=== PATIENT | male | born 1945 | race Hispanic/Latino ===

== ENCOUNTER 2020-11-23 02:38 | Inpatient (IN) | payer MEDICARE ==
[2020-11-24] MEDS: FAMOTIDINE 20 MG TAB PO SCH ×3 (02:58→21:23)
[2020-11-24] MEDS: DONEPEZIL 10 MG TAB PO SCH ×2 (02:59→21:23)
[2020-11-24] MEDS: traZODone 100 MG TAB PO SCH ×2 (03:02→21:23)
[2020-11-24 07:15] LABS: Basophils % (Auto) 0.6 % (0.0-1.8); Eosinophils # (Auto) 0.3 K/mm3 (0.0-0.4); Eosinophils % (Auto) 4.5 % (0.0-4.3); Hematocrit 36.1 % (35.5-45.6); Hemoglobin 11.9 gm/dl (11.8-15.2); Lymphocytes # (Auto) 1.7 K/mm3 (1.2-5.4); Lymphocytes % (Auto) 26.7 % (13.4-35.0); Mean Corpuscular HGB Conc 33 % (32-34); Mean Corpuscular Volume 95 fl (84-94); Monocytes # (Auto) 0.8 K/mm3 (0.0-0.8); Monocytes % (Auto) 12.3 % (0.0-7.3); Platelet Count 210 K/mm3 (140-440); Red Blood Count 3.79 M/mm3 (3.65-5.03)
[2020-11-24 07:37] LABS: Albumin 3.5 g/dL (3.9-5); Calcium 8.8 mg/dL (8.4-10.2); Chol/HDL Ratio 2.83 %
--- NOTE | 2020-11-24 08:40 | History and Physical Report ---
GP History & Physical - History of Present Illness Date of admission: 11/24/20 Date of Examination: 11/24/20 Reason for Admission: Danger to self, Danger to others, Impaired reality testing History of Present Illness: HPI Patient is a 74-year-old, retired male with past medical history of dementia who was admitted from [facility]. According to medical records from the other facility, most of the information was provided from who gonzalez taken patient to the ER from his nursing facility. Attempt made to interview him this AM but patient appears withdrawn and not engaged, not physical agitation. PAST PSYCHIATRIC HISTORY: Diagnoses: none reported Suicide attempts or Self-harm behavior: none reported Prior psychiatric hospitalizations: none reported Substance Abuse history: none reported Previous psychiatric medications tried: none reported Outpatient treatment: none reported PAST MEDICAL HISTORY: Family Psychiatric History: None reported or documented SOCIAL HISTORY Marital Status: Living Arrangements: Assisted living Employment Status: Retired Access to guns/weapons: none reported Education: n/a History of Abuse: none reported Legal History: none reported REVIEW OF SYSTEMS ROS cannot be reliably obtained from the patient due to her confusion and somnolence. MENTAL STATUS EXAMINATION General Appearance and Behavior: Age appropriate, good hygiene, wearing appropriate clothes, uncooperative polite with questioning. Cooperation: Withdrawn Psychomotor Behavior: Psychomotor normal Mood: N/A Affect and affective range: Flat Thought Process: Tangential Thought Content:confused Speech: Normal volume, Regular rate and rhythm, Intellectual Functioning: Poor Suicidal Ideation: N/A Homicidal Ideation: N/A Impulse Control: Unimpaired Insight and Judgment: Impaired Memory: memory impaired Attention:Distractible, Orientation: Alert, but disoriented and confused Assessment and Plan - Psychiatric problem (1) Dementia with behavioral disturbance Current Visit: Yes Status: Acute F03.91 Treatment Plan Patient admitted for inpatient psychiatric evaluation, medication adjustment and close monitoring The patient's behavior, mood, sleep and appetite will be closely monitored. Patient enrolled in individual and group therapeutic sessions and encouraged to attend. Patient provided with a safe and structured environment. Patient's physical health needs will be addressed by the Hospitalist. Hospitalist Consulted Labs including CBC, CMP, Lipid profile and Hemoglobin A1C levels ordered for baseline reference Social Assessment will be completed and the [facility] will work with patient and family to ensure a suitable and safe disposition Medication adjustment will be made as clinically indicated Usual Wellness Yarsanism/Preservation: - Start Trazodone 50 mg po QHS & 50 mg po QHS PRN between 10 PM & 2 AM for insomnia - Start Melatonin 5 mg po QHS to promote circadian rhythm - Start [place]-3 for brain health, reduce impulsivity, and as adjunctive treatment for mood disorder, continue upon discharge given overall benefits. - Start B1 prophylaxis with 200 mg po for 5 days The patient agreed on the treatment plan, understood the risk, benefit, alternative treatment, potential consequence of no treatment, and gave informed consent. Initial Certification Inpatient psych services: I certify that the inpatient psychiatric services are required for treatment that could reasonably be expected to improve the patient's condition. Estimated days: 7 Post hospital care: primary care provider, psychiatric provider Legal Status: Other Patient Problems: Current Active Problems Dementia with behavioral disturbance (Acute) Reaction to Hospitalization: Accepting Medications and Allergies Allergies Allergy/AdvReac Type Severity Reaction Status Date / Time codeine Allergy Unknown Verified 11/23/20 20:12 Penicillins Allergy Unknown Verified 11/23/20 20:12 Home Medications Medication Instructions Recorded Confirmed Last Taken Type Benzonatate [Tessalon Perles] 100 mg PO Q8HR PRN 11/23/20 11/23/20 Unknown History Famotidine [Pepcid] 20 mg PO BID 11/23/20 11/23/20 Unknown History LORazepam [Lorazepam] 0.5 mg PO TID PRN 11/23/20 11/23/20 Unknown History dexAMETHasone [Dexamethasone] 6 mg PO Q24HR 11/23/20 11/23/20 Unknown History donepeziL [Aricept] 10 mg PO QDAY 11/23/20 11/23/20 Unknown History lisinopriL [Zestril TAB] 40 mg PO QDAY 11/23/20 11/23/20 Unknown History traZODone [Desyrel] 100 mg PO HS 11/23/20 11/23/20 Unknown History Active Meds: Active Medications Donepezil HCl (Donepezil 10 Mg Tab) 10 mg PO QHS [facility] Last Admin: 11/24/20 02:59 Dose: 10 mg Documented by: Famotidine (Famotidine 20 Mg Tab) 20 mg PO BID [facility] Last Admin: 11/24/20 02:58 Dose: Not Given Documented by: Lisinopril (Lisinopril 40 Mg Tab) 40 mg PO QDAY [facility] Melatonin (Melatonin 5 Mg Tab) 5 mg PO QHS PRN PRN Reason: Sleep Trazodone HCl (Trazodone 100 Mg Tab) 100 mg PO QHS [facility] Last Admin: 11/24/20 03:02 Dose: 100 mg Documented by: Results - Results Labs/Vitals: Laboratory Last Values WBC 6.5 K/mm3 (4.5-11.0) 11/24/20 06:20 RBC 3.79 M/mm3 (3.65-5.03) 11/24/20 06:20 Hgb 11.9 gm/dl (11.8-15.2) 11/24/20 06:20 Hct 36.1 % (35.5-45.6) 11/24/20 06:20 MCV 95 fl (84-94) H 11/24/20 06:20 MCH 31 pg (28-32) 11/24/20 06:20 MCHC 33 % (32-34) 11/24/20 06:20 RDW 15.0 % (13.2-15.2) 11/24/20 06:20 Plt Count 210 K/mm3 (140-440) 11/24/20 06:20 Lymph % (Auto) 26.7 % (13.4-35.0) 11/24/20 06:20 [place] % (Auto) 12.3 % (0.0-7.3) H 11/24/20 06:20 Eos % (Auto) 4.5 % (0.0-4.3) H 11/24/20 06:20 Baso % (Auto) 0.6 % (0.0-1.8) 11/24/20 06:20 Lymph # (Auto) 1.7 K/mm3 (1.2-5.4) 11/24/20 06:20 [place] # (Auto) 0.8 K/mm3 (0.0-0.8) 11/24/20 06:20 Eos # (Auto) 0.3 K/mm3 (0.0-0.4) 11/24/20 06:20 Baso # (Auto) 0.0 K/mm3 (0.0-0.1) 11/24/20 06:20 Seg Neutrophils % 55.9 % (40.0-70.0) 11/24/20 06:20 Seg Neutrophils # 3.6 K/mm3 (1.8-7.7) 11/24/20 06:20 Sodium 139 mmol/L (137-145) 11/24/20 06:20 Potassium 4.9 mmol/L (3.6-5.0) 11/24/20 06:20 Chloride 106.1 mmol/L (98-107) 11/24/20 06:20 Carbon Dioxide 27 mmol/L (22-30) 11/24/20 06:20 Anion Gap 11 mmol/L 11/24/20 06:20 BUN 22 mg/dL (9-20) H 11/24/20 06:20 Creatinine 1.4 mg/dL (0.8-1.3) H 11/24/20 06:20 Estimated GFR 50 ml/min 11/24/20 06:20 BUN/Creatinine Ratio 16 % 11/24/20 06:20 Glucose 84 mg/dL (75-100) 11/24/20 06:20 POC Glucose 78 mg/dL (70-105) 11/24/20 04:54 Hemoglobin A1c 6.1 % (4-6) H 11/24/20 06:20 Calcium 8.8 mg/dL (8.4-10.2) 11/24/20 06:20 Total Bilirubin 0.40 mg/dL (0.1-1.2) 11/24/20 06:20 AST 14 units/L (5-40) 11/24/20 06:20 ALT 9 units/L (7-56) 11/24/20 06:20 Alkaline Phosphatase 67 units/L (35-129) 11/24/20 06:20 Total Protein 6.1 g/dL (6.3-8.2) L 11/24/20 06:20 Albumin 3.5 g/dL (3.9-5) L 11/24/20 06:20 Albumin/Globulin Ratio 1.3 % 11/24/20 06:20 Triglycerides 87 mg/dL (2-149) 11/24/20 06:20 Cholesterol 139 mg/dL (50-199) 11/24/20 06:20 LDL Cholesterol Direct 89 mg/dL (50-130) 11/24/20 06:20 HDL Cholesterol 49 mg/dL (40-59) 11/24/20 06:20 Cholesterol/HDL Ratio 2.83 % 11/24/20 06:20 TSH 2.860 mlU/mL (0.270-4.200) 11/24/20 06:20 Last Vital Signs Temp 98.7 F 11/24/20 07:51 Pulse 90 11/24/20 07:51 Resp 18 11/24/20 07:51 BP 135/67 11/24/20 07:51 Pulse Ox 96 11/24/20 07:51 Physical Examination - Constitutional Vitals: Vital Signs Temp Pulse Resp BP Pulse Ox 98.7 F 90 18 135/67 96 11/24/20 07:51 11/24/20 07:51 11/24/20 07:51 11/24/20 07:51 11/24/20 07:51 Temperature -Last 24 Hours Temperature 98.7 F Temperature 97.4 F Mental Status Exam - Vital signs Last Vital Signs Temp 98.7 F 11/24/20 07:51 Pulse 90 11/24/20 07:51 Resp 18 11/24/20 07:51 BP 135/67 11/24/20 07:51 Pulse Ox 96 11/24/20 07:51 Assessment and Plan - Psychiatric problem (1) Dementia with behavioral disturbance Current Visit: Yes Status: Acute Physician Certification - Certification Statement Physician Certification Statement: This is an acknowledgement statement that JENNIFER EDWARD is a 74 year old M who requires inpatient psychiatric admission for treatment which could reasonably be expected to improve the patient's condition for Estimated period of time patient will need to remain in the hospital: [ ] Plan for post-hospital care: [ ]
[2020-11-24] MEDS: LISINOPRIL 40 MG TAB PO SCH (10:43)
[2020-11-24] MEDS: risperiDONE 1 MG TAB PO SCH ×2 (10:43→21:23)
--- NOTE | 2020-11-24 11:58 | History and Physical Report ---
History of Present Illness Date of examination: 11/24/20 Date of admission: 11/24/20 Chief complaint: 11/24/2020 Dementia with behavioral disturbances History of present illness: 74-year-old male with past medical history of hypertension and dementia who presented from [facility] due to behavioral disturbances secondary to dementia. No family at the bedside, patient [facility]. Patient was transferred to [facility] for continued care. Cannot obtain any information from the patient since he is confused. Does not admit to any suicidal ideation or homicidal ideation. Psychiatry has seen the patient, on appropriate medications at this time. Hospitalist consulted for medical management of hypertension. Past History Past Medical History: hypertension Past Surgical History: Other (Cannot obtain surgical history due to patient's mental condition) Social history: other (Cannot obtain social history due to patient's mental condition) Family history: other (Cannot obtain due to patient's mental condition) Medications and Allergies Allergies Allergy/AdvReac Type Severity Reaction Status Date / Time codeine Allergy Unknown Verified 11/23/20 20:12 Penicillins Allergy Unknown Verified 11/23/20 20:12 Home Medications Medication Instructions Recorded Confirmed Last Taken Type Benzonatate [Tessalon Perles] 100 mg PO Q8HR PRN 11/23/20 11/23/20 Unknown History Famotidine [Pepcid] 20 mg PO BID 11/23/20 11/23/20 Unknown History LORazepam [Lorazepam] 0.5 mg PO TID PRN 11/23/20 11/23/20 Unknown History dexAMETHasone [Dexamethasone] 6 mg PO Q24HR 11/23/20 11/23/20 Unknown History donepeziL [Aricept] 10 mg PO QDAY 11/23/20 11/23/20 Unknown History lisinopriL [Zestril TAB] 40 mg PO QDAY 11/23/20 11/23/20 Unknown History traZODone [Desyrel] 100 mg PO HS 11/23/20 11/23/20 Unknown History Active Meds: Active Medications Donepezil HCl (Donepezil 10 Mg Tab) 10 mg PO QHS [facility] Last Admin: 11/24/20 02:59 Dose: 10 mg Documented by: Famotidine (Famotidine 20 Mg Tab) 20 mg PO BID [facility] Last Admin: 11/24/20 10:43 Dose: 20 mg Documented by: Lisinopril (Lisinopril 40 Mg Tab) 40 mg PO QDAY [facility] Last Admin: 11/24/20 10:43 Dose: 40 mg Documented by: Melatonin (Melatonin 5 Mg Tab) 5 mg PO QHS PRN PRN Reason: Sleep Risperidone (Risperidone 1 Mg Tab) 1 mg PO BID [facility] Last Admin: 11/24/20 10:43 Dose: 1 mg Documented by: Trazodone HCl (Trazodone 100 Mg Tab) 100 mg PO QHS [facility] Last Admin: 11/24/20 03:02 Dose: 100 mg Documented by: Review of Systems ROS unobtainable: due to mental status Exam - Constitutional Vitals: Temp Pulse Resp BP Pulse Ox 98.7 F 90 18 135/67 96 11/24/20 07:51 11/24/20 10:43 11/24/20 07:51 11/24/20 10:43 11/24/20 07:51 General appearance: Present: no acute distress, well-nourished - EENT Eyes: Present: PERRL ENT: hearing intact, clear oral mucosa - Neck Neck: Present: supple, normal ROM - Respiratory Respiratory effort: normal Respiratory: bilateral: CTA - Cardiovascular Heart Sounds: Present: S1 & S2. Absent: rub, click - Extremities Extremities: no ischemia, No edema, normal color, Full ROM - Abdominal General gastrointestinal: Present: soft, non-tender, non-distended, normal bowel sounds - Integumentary Integumentary: Present: clear, warm, dry - Musculoskeletal Musculoskeletal: gait normal, strength equal bilaterally - Psychiatric Psychiatric: cooperative, other (No agitation, no behavioral disturbances at this time. Patient minimally verbal) - Neurologic Neurologic: CNII-XII intact, moves all extremities Results - Labs CBC & Chem 7: 11/24/20 06:20 11/24/20 06:20 Labs: Laboratory Last Values WBC 6.5 K/mm3 (4.5-11.0) 11/24/20 06:20 RBC 3.79 M/mm3 (3.65-5.03) 11/24/20 06:20 Hgb 11.9 gm/dl (11.8-15.2) 11/24/20 06:20 Hct 36.1 % (35.5-45.6) 11/24/20 06:20 MCV 95 fl (84-94) H 11/24/20 06:20 MCH 31 pg (28-32) 11/24/20 06:20 MCHC 33 % (32-34) 11/24/20 06:20 RDW 15.0 % (13.2-15.2) 11/24/20 06:20 Plt Count 210 K/mm3 (140-440) 11/24/20 06:20 Lymph % (Auto) 26.7 % (13.4-35.0) 11/24/20 06:20 [place] % (Auto) 12.3 % (0.0-7.3) H 11/24/20 06:20 Eos % (Auto) 4.5 % (0.0-4.3) H 11/24/20 06:20 Baso % (Auto) 0.6 % (0.0-1.8) 11/24/20 06:20 Lymph # (Auto) 1.7 K/mm3 (1.2-5.4) 11/24/20 06:20 [place] # (Auto) 0.8 K/mm3 (0.0-0.8) 11/24/20 06:20 Eos # (Auto) 0.3 K/mm3 (0.0-0.4) 11/24/20 06:20 Baso # (Auto) 0.0 K/mm3 (0.0-0.1) 11/24/20 06:20 Seg Neutrophils % 55.9 % (40.0-70.0) 11/24/20 06:20 Seg Neutrophils # 3.6 K/mm3 (1.8-7.7) 11/24/20 06:20 Sodium 139 mmol/L (137-145) 11/24/20 06:20 Potassium 4.9 mmol/L (3.6-5.0) 11/24/20 06:20 Chloride 106.1 mmol/L (98-107) 11/24/20 06:20 Carbon Dioxide 27 mmol/L (22-30) 11/24/20 06:20 Anion Gap 11 mmol/L 11/24/20 06:20 BUN 22 mg/dL (9-20) H 11/24/20 06:20 Creatinine 1.4 mg/dL (0.8-1.3) H 11/24/20 06:20 Estimated GFR 50 ml/min 11/24/20 06:20 BUN/Creatinine Ratio 16 % 11/24/20 06:20 Glucose 84 mg/dL (75-100) 11/24/20 06:20 POC Glucose 78 mg/dL (70-105) 11/24/20 04:54 Hemoglobin A1c 6.1 % (4-6) H 11/24/20 06:20 Calcium 8.8 mg/dL (8.4-10.2) 11/24/20 06:20 Total Bilirubin 0.40 mg/dL (0.1-1.2) 11/24/20 06:20 AST 14 units/L (5-40) 11/24/20 06:20 ALT 9 units/L (7-56) 11/24/20 06:20 Alkaline Phosphatase 67 units/L (35-129) 11/24/20 06:20 Total Protein 6.1 g/dL (6.3-8.2) L 11/24/20 06:20 Albumin 3.5 g/dL (3.9-5) L 11/24/20 06:20 Albumin/Globulin Ratio 1.3 % 11/24/20 06:20 Triglycerides 87 mg/dL (2-149) 11/24/20 06:20 Cholesterol 139 mg/dL (50-199) 11/24/20 06:20 LDL Cholesterol Direct 89 mg/dL (50-130) 11/24/20 06:20 HDL Cholesterol 49 mg/dL (40-59) 11/24/20 06:20 Cholesterol/HDL Ratio 2.83 % 11/24/20 06:20 TSH 2.860 mlU/mL (0.270-4.200) 11/24/20 06:20 Sanchez/IV: Voiding Method Toilet Assessment and Plan Assessment and plan: 74-year-old male with a past medical history of hypertension and dementia who [facility] for dementia with behavioral disturbances Advance Directives: Yes VTE prophylaxis?: Not ordered (Patient is ambulatory and walking around the unit) - Patient Problems (1) Hypertension Current Visit: Yes Status: Chronic Qualifiers: Hypertension type: essential hypertension Qualified Code(s): I10 - Essential (primary) hypertension Plan to address problem: Continue lisinopril. Continue to monitor creatinine. We will switch to amlo dipine if creatinine continues to be elevated. (2) Dementia with behavioral disturbance Current Visit: Yes Status: Acute Plan to address problem: Psych following, continue donezepil, risperidone, and trazodone. Psychiatry to make recommendations and adjustments to psych meds.
--- NOTE | 2020-11-25 07:29 | Progress Note ---
Subjective Date of service: 11/25/20 Principal diagnosis: Dementia with behavioral disturbance Subjective Comment: Per Psych Nuurse: Patient rested quietly until 0345. He awoke and had to be changed due to incontinence. Patient needed 2 staff to assist due to his agitation when being changed. He was unable to return to sleep. He presents as sleeping 6 hours. Will continue to monitor patient for safety. pt spent the evening wandering the unit, alert and oriented to self, calm and cooperative, presently confused, medication compliant, good appetite, no behavioral issue, no distress noted, will continue to monitor for safety. Psych Progress Patient seen this a.m., when asked how patient was doing and if he slept good, patient states that "he does not know" patient then also asked what do I want from him and he proceeded to the creatinine his breakfast to eat. Reason for continuing acute inpatient hospitalization: We will continue to observe for behavioral disturbances REVIEW OF SYSTEMS ROS cannot be reliably obtained from the patient due to her confusion and somnolence. MENTAL STATUS EXAMINATION General Appearance and Behavior: Age appropriate, good hygiene, wearing appropriate clothes, uncooperative polite with questioning. Cooperation: Withdrawn Psychomotor Behavior: Psychomotor normal Mood: N/A Affect and affective range: Flat Thought Process: Tangential Thought Content:confused Speech: Normal volume, Regular rate and rhythm, Intellectual Functioning: Poor Suicidal Ideation: N/A Homicidal Ideation: N/A Impulse Control: Unimpaired Insight and Judgment: Impaired Memory: memory impaired Attention:Distractible, Orientation: Alert, but disoriented and confused Assessment and Plan - Psychiatric problem (1) Dementia with behavioral disturbance Current Visit: Yes Status: Acute F03.91 Treatment Plan Patient admitted for inpatient psychiatric evaluation, medication adjustment and close monitoring The patient's behavior, mood, sleep and appetite will be closely monitored. Patient enrolled in individual and group therapeutic sessions and encouraged to attend. Patient provided with a safe and structured environment. Patient's physical health needs will be addressed by the Hospitalist. Hospitalist Consulted Labs including CBC, CMP, Lipid profile and Hemoglobin A1C levels ordered for baseline reference Social Assessment will be completed and the Leave Coordinator will work with patient and family to ensure a suitable and safe disposition Medication adjustment will be made as clinically indicated Usual Wellness Religious/Preservation: - Start Trazodone 50 mg po QHS & 50 mg po QHS PRN between 10 PM & 2 AM for insomnia - Start Melatonin 5 mg po QHS to promote circadian rhythm - Start [place]-3 for brain health, reduce impulsivity, and as adjunctive treatment for mood disorder, continue upon discharge given overall benefits. - Start B1 prophylaxis with 200 mg po for 5 days The patient agreed on the treatment plan, understood the risk, benefit, alternative treatment, potential consequence of no treatment, and gave informed consent. Initial Certification Inpatient psych services: I certify that the inpatient psychiatric services are required for treatment that could reasonably be expected to improve the patient's condition. Estimated days:6 Post hospital care: primary care provider, psychiatric provider Assessment and Plan - Patient Problems (1) Dementia with behavioral disturbance Current Visit: Yes Status: Acute Medications and Allergies Allergies Allergy/AdvReac Type Severity Reaction Status Date / Time codeine Allergy Unknown Verified 11/23/20 20:12 Penicillins Allergy Unknown Verified 11/23/20 20:12 Home Medications Medication Instructions Recorded Confirmed Last Taken Type Benzonatate [Tessalon Perles] 100 mg PO Q8HR PRN 11/23/20 11/23/20 Unknown History Famotidine [Pepcid] 20 mg PO BID 11/23/20 11/23/20 Unknown History LORazepam [Lorazepam] 0.5 mg PO TID PRN 11/23/20 11/23/20 Unknown History dexAMETHasone [Dexamethasone] 6 mg PO Q24HR 11/23/20 11/23/20 Unknown History donepeziL [Aricept] 10 mg PO QDAY 11/23/20 11/23/20 Unknown History lisinopriL [Zestril TAB] 40 mg PO QDAY 11/23/20 11/23/20 Unknown History traZODone [Desyrel] 100 mg PO HS 11/23/20 11/23/20 Unknown History Active Meds: Active Medications Donepezil HCl (Donepezil 10 Mg Tab) 10 mg PO QHS [facility] Last Admin: 11/24/20 21:23 Dose: 10 mg Documented by: Famotidine (Famotidine 20 Mg Tab) 20 mg PO BID [facility] Last Admin: 11/24/20 21:23 Dose: 20 mg Documented by: Lisinopril (Lisinopril 40 Mg Tab) 40 mg PO QDAY [facility] Last Admin: 11/24/20 10:43 Dose: 40 mg Documented by: Melatonin (Melatonin 5 Mg Tab) 5 mg PO QHS PRN PRN Reason: Sleep Risperidone (Risperidone 1 Mg Tab) 1 mg PO BID [facility] Last Admin: 11/24/20 21:23 Dose: 1 mg Documented by: Trazodone HCl (Trazodone 100 Mg Tab) 100 mg PO QHS [facility] Last Admin: 11/24/20 21:23 Dose: 100 mg Documented by: Results - Results Labs/Vitals: Laboratory Last Values WBC 6.5 K/mm3 (4.5-11.0) 11/24/20 06:20 RBC 3.79 M/mm3 (3.65-5.03) 11/24/20 06:20 Hgb 11.9 gm/dl (11.8-15.2) 11/24/20 06:20 Hct 36.1 % (35.5-45.6) 11/24/20 06:20 MCV 95 fl (84-94) H 11/24/20 06:20 MCH 31 pg (28-32) 11/24/20 06:20 MCHC 33 % (32-34) 11/24/20 06:20 RDW 15.0 % (13.2-15.2) 11/24/20 06:20 Plt Count 210 K/mm3 (140-440) 11/24/20 06:20 Lymph % (Auto) 26.7 % (13.4-35.0) 11/24/20 06:20 [place] % (Auto) 12.3 % (0.0-7.3) H 11/24/20 06:20 Eos % (Auto) 4.5 % (0.0-4.3) H 11/24/20 06:20 Baso % (Auto) 0.6 % (0.0-1.8) 11/24/20 06:20 Lymph # (Auto) 1.7 K/mm3 (1.2-5.4) 11/24/20 06:20 [place] # (Auto) 0.8 K/mm3 (0.0-0.8) 11/24/20 06:20 Eos # (Auto) 0.3 K/mm3 (0.0-0.4) 11/24/20 06:20 Baso # (Auto) 0.0 K/mm3 (0.0-0.1) 11/24/20 06:20 Seg Neutrophils % 55.9 % (40.0-70.0) 11/24/20 06:20 Seg Neutrophils # 3.6 K/mm3 (1.8-7.7) 11/24/20 06:20 Sodium 139 mmol/L (137-145) 11/24/20 06:20 Potassium 4.9 mmol/L (3.6-5.0) 11/24/20 06:20 Chloride 106.1 mmol/L (98-107) 11/24/20 06:20 Carbon Dioxide 27 mmol/L (22-30) 11/24/20 06:20 Anion Gap 11 mmol/L 11/24/20 06:20 BUN 22 mg/dL (9-20) H 11/24/20 06:20 Creatinine 1.4 mg/dL (0.8-1.3) H 11/24/20 06:20 Estimated GFR 50 ml/min 11/24/20 06:20 BUN/Creatinine Ratio 16 % 11/24/20 06:20 Glucose 84 mg/dL (75-100) 11/24/20 06:20 POC Glucose 78 mg/dL (70-105) 11/24/20 04:54 Hemoglobin A1c 6.1 % (4-6) H 11/24/20 06:20 Calcium 8.8 mg/dL (8.4-10.2) 11/24/20 06:20 Total Bilirubin 0.40 mg/dL (0.1-1.2) 11/24/20 06:20 AST 14 units/L (5-40) 11/24/20 06:20 ALT 9 units/L (7-56) 11/24/20 06:20 Alkaline Phosphatase 67 units/L (35-129) 11/24/20 06:20 Total Protein 6.1 g/dL (6.3-8.2) L 11/24/20 06:20 Albumin 3.5 g/dL (3.9-5) L 11/24/20 06:20 Albumin/Globulin Ratio 1.3 % 11/24/20 06:20 Triglycerides 87 mg/dL (2-149) 11/24/20 06:20 Cholesterol 139 mg/dL (50-199) 11/24/20 06:20 LDL Cholesterol Direct 89 mg/dL (50-130) 11/24/20 06:20 HDL Cholesterol 49 mg/dL (40-59) 11/24/20 06:20 Cholesterol/HDL Ratio 2.83 % 11/24/20 06:20 TSH 2.860 mlU/mL (0.270-4.200) 11/24/20 06:20 Last Vital Signs Temp 99.2 F 11/24/20 22:00 Pulse 72 11/24/20 22:00 Resp 18 11/24/20 22:00 BP 135/57 11/24/20 22:00 Pulse Ox 96 11/24/20 22:00
[2020-11-25] MEDS: FAMOTIDINE 20 MG TAB PO SCH ×2 (09:07→21:29)
[2020-11-25] MEDS: risperiDONE 1 MG TAB PO SCH ×2 (09:08→21:29)
[2020-11-25] MEDS: LISINOPRIL 40 MG TAB PO SCH (09:08)
[2020-11-25] MEDS: traZODone 100 MG TAB PO SCH (21:29)
[2020-11-25] MEDS: DONEPEZIL 10 MG TAB PO SCH (21:29)
--- NOTE | 2020-11-26 08:01 | Progress Note ---
Subjective Date of service: 11/26/20 Principal diagnosis: Dementia with behavioral disturbance Subjective Comment: Attempted to interview the patient today, he is confused and unable to give any insight into his history and as to what is going on with him presently. He just stares with this blank look. Reason for continued inpatient treatment: The patient displays physical aggression at times as observed by nursing staff. REVIEW OF SYSTEMS ROS cannot be reliably obtained from the patient due to her confusion and somnolence. MENTAL STATUS EXAMINATION General Appearance and Behavior: Age appropriate, good hygiene, wearing appropriate clothes, calm Cooperation: Withdrawn Psychomotor Behavior: Psychomotor normal Mood: N/A Affect and affective range: Flat Thought Process: Tangential Thought Content:confused Speech: Normal volume, Regular rate and rhythm, Intellectual Functioning: Poor Suicidal Ideation: N/A Homicidal Ideation: N/A Impulse Control: Unimpaired Insight and Judgment: Impaired Memory: memory impaired Attention:Distractible, Orientation: Alert, but disoriented and confused Assessment and Plan (1) Dementia with behavioral disturbance Current Visit: Yes Status: Acute F03.91 Treatment Plan Patient admitted for inpatient psychiatric evaluation, medication adjustment and close monitoring The patient's behavior, mood, sleep and appetite will be closely monitored. Patient enrolled in individual and group therapeutic sessions and encouraged to attend. Patient provided with a safe and structured environment. Patient's physical health needs will be addressed by the Hospitalist. Hospitalist Consulted Labs including CBC, CMP, Lipid profile and Hemoglobin A1C levels ordered for baseline reference Social Assessment will be completed and the Chief Crew Scheduler will work with patient and family to ensure a suitable and safe disposition Medication adjustment will be made as clinically indicated Adjustments made yesterday. No changes today. Usual Wellness Yazdanism/Preservation: - Start Trazodone 50 mg po QHS & 50 mg po QHS PRN between 10 PM & 2 AM for insomnia - Start Melatonin 5 mg po QHS to promote circadian rhythm - Start [place]-3 for brain health, reduce impulsivity, and as adjunctive treatment for mood disorder, continue upon discharge given overall benefits. - Start B1 prophylaxis with 200 mg po for 5 days The patient agreed on the treatment plan, understood the risk, benefit, alternative treatment, potential consequence of no treatment, and gave informed consent. Estimated days: 5 Post hospital care: primary care provider, psychiatric provider Medications and Allergies Allergies Allergy/AdvReac Type Severity Reaction Status Date / Time codeine Allergy Unknown Verified 11/23/20 20:12 Penicillins Allergy Unknown Verified 11/23/20 20:12 Home Medications Medication Instructions Recorded Confirmed Last Taken Type Benzonatate [Tessalon Perles] 100 mg PO Q8HR PRN 11/23/20 11/23/20 Unknown History Famotidine [Pepcid] 20 mg PO BID 11/23/20 11/23/20 Unknown History LORazepam [Lorazepam] 0.5 mg PO TID PRN 11/23/20 11/23/20 Unknown History dexAMETHasone [Dexamethasone] 6 mg PO Q24HR 11/23/20 11/23/20 Unknown History donepeziL [Aricept] 10 mg PO QDAY 11/23/20 11/23/20 Unknown History lisinopriL [Zestril TAB] 40 mg PO QDAY 11/23/20 11/23/20 Unknown History traZODone [Desyrel] 100 mg PO HS 11/23/20 11/23/20 Unknown History Active Meds: Active Medications Donepezil HCl (Donepezil 10 Mg Tab) 10 mg PO QHS [facility] Last Admin: 11/25/20 21:29 Dose: 10 mg Documented by: Famotidine (Famotidine 20 Mg Tab) 20 mg PO BID [facility] Last Admin: 11/25/20 21:29 Dose: 20 mg Documented by: Lisinopril (Lisinopril 40 Mg Tab) 40 mg PO QDAY [facility] Last Admin: 11/25/20 09:08 Dose: 40 mg Documented by: Melatonin (Melatonin 5 Mg Tab) 5 mg PO QHS PRN PRN Reason: Sleep Risperidone (Risperidone 1 Mg Tab) 1 mg PO BID [facility] Last Admin: 11/25/20 21:29 Dose: 1 mg Documented by: Trazodone HCl (Trazodone 100 Mg Tab) 100 mg PO QHS [facility] Last Admin: 11/25/20 21:29 Dose: 100 mg Documented by: Results - Results Labs/Vitals: Laboratory Last Values WBC 6.5 K/mm3 (4.5-11.0) 11/24/20 06:20 RBC 3.79 M/mm3 (3.65-5.03) 11/24/20 06:20 Hgb 11.9 gm/dl (11.8-15.2) 11/24/20 06:20 Hct 36.1 % (35.5-45.6) 11/24/20 06:20 MCV 95 fl (84-94) H 11/24/20 06:20 MCH 31 pg (28-32) 11/24/20 06:20 MCHC 33 % (32-34) 11/24/20 06:20 RDW 15.0 % (13.2-15.2) 11/24/20 06:20 Plt Count 210 K/mm3 (140-440) 11/24/20 06:20 Lymph % (Auto) 26.7 % (13.4-35.0) 11/24/20 06:20 [place] % (Auto) 12.3 % (0.0-7.3) H 11/24/20 06:20 Eos % (Auto) 4.5 % (0.0-4.3) H 11/24/20 06:20 Baso % (Auto) 0.6 % (0.0-1.8) 11/24/20 06:20 Lymph # (Auto) 1.7 K/mm3 (1.2-5.4) 11/24/20 06:20 [place] # (Auto) 0.8 K/mm3 (0.0-0.8) 11/24/20 06:20 Eos # (Auto) 0.3 K/mm3 (0.0-0.4) 11/24/20 06:20 Baso # (Auto) 0.0 K/mm3 (0.0-0.1) 11/24/20 06:20 Seg Neutrophils % 55.9 % (40.0-70.0) 11/24/20 06:20 Seg Neutrophils # 3.6 K/mm3 (1.8-7.7) 11/24/20 06:20 Sodium 139 mmol/L (137-145) 11/24/20 06:20 Potassium 4.9 mmol/L (3.6-5.0) 11/24/20 06:20 Chloride 106.1 mmol/L (98-107) 11/24/20 06:20 Carbon Dioxide 27 mmol/L (22-30) 11/24/20 06:20 Anion Gap 11 mmol/L 11/24/20 06:20 BUN 22 mg/dL (9-20) H 11/24/20 06:20 Creatinine 1.4 mg/dL (0.8-1.3) H 11/24/20 06:20 Estimated GFR 50 ml/min 11/24/20 06:20 BUN/Creatinine Ratio 16 % 11/24/20 06:20 Glucose 84 mg/dL (75-100) 11/24/20 06:20 POC Glucose 78 mg/dL (70-105) 11/24/20 04:54 Hemoglobin A1c 6.1 % (4-6) H 11/24/20 06:20 Calcium 8.8 mg/dL (8.4-10.2) 11/24/20 06:20 Total Bilirubin 0.40 mg/dL (0.1-1.2) 11/24/20 06:20 AST 14 units/L (5-40) 11/24/20 06:20 ALT 9 units/L (7-56) 11/24/20 06:20 Alkaline Phosphatase 67 units/L (35-129) 11/24/20 06:20 Total Protein 6.1 g/dL (6.3-8.2) L 11/24/20 06:20 Albumin 3.5 g/dL (3.9-5) L 11/24/20 06:20 Albumin/Globulin Ratio 1.3 % 11/24/20 06:20 Triglycerides 87 mg/dL (2-149) 11/24/20 06:20 Cholesterol 139 mg/dL (50-199) 11/24/20 06:20 LDL Cholesterol Direct 89 mg/dL (50-130) 11/24/20 06:20 HDL Cholesterol 49 mg/dL (40-59) 11/24/20 06:20 Cholesterol/HDL Ratio 2.83 % 11/24/20 06:20 TSH 2.860 mlU/mL (0.270-4.200) 11/24/20 06:20 Last Vital Signs Temp 98.4 F 11/25/20 20:00 Pulse 86 11/25/20 20:00 Resp 16 11/25/20 20:00 BP 133/62 11/25/20 20:00 Pulse Ox 98 11/25/20 20:00
[2020-11-26] MEDS: LISINOPRIL 40 MG TAB PO SCH (09:33)
[2020-11-26] MEDS: clonazePAM 0.5 MG TAB PO SCH ×2 (09:33→21:36)
[2020-11-26] MEDS: risperiDONE 1 MG TAB PO SCH ×2 (09:33→21:36)
[2020-11-26] MEDS: FAMOTIDINE 20 MG TAB PO SCH ×2 (09:33→21:36)
[2020-11-26] MEDS: traZODone 100 MG TAB PO SCH (21:36)
[2020-11-26] MEDS: DONEPEZIL 10 MG TAB PO SCH (21:36)
[2020-11-26] MEDS: MELATONIN 5 MG TAB PO PRN (21:36)
--- NOTE | 2020-11-27 09:04 | Progress Note ---
Subjective Date of service: 11/27/20 Principal diagnosis: Dementia with behavioral disturbance Subjective Comment: Per nurse note: Patient spent the unit walking around the unit. He is pleasantly confused. He responds well to redirection. He brightens and smiles on approach. He has had no agitation. Attempted to interview the patient today. He is confused and did not speak to me today. He did smile when I was speaking to him. Reason for continued inpatient treatment: The patient paces a lot, and physical aggression at times as observed by nursing staff. REVIEW OF SYSTEMS ROS cannot be reliably obtained from the patient due to her confusion and somnolence. MENTAL STATUS EXAMINATION General Appearance and Behavior: Age appropriate, good hygiene, wearing appropriate clothes, calm Cooperation: Withdrawn Psychomotor Behavior: Psychomotor normal Mood: N/A Affect and affective range: Flat Thought Process: Tangential Thought Content:confused Speech: Normal volume, Regular rate and rhythm, Intellectual Functioning: Poor Suicidal Ideation: N/A Homicidal Ideation: N/A Impulse Control: Unimpaired Insight and Judgment: Impaired Memory: memory impaired Attention:Distractible, Orientation: Alert, but disoriented and confused Assessment and Plan (1) Dementia with behavioral disturbance Current Visit: Yes Status: Acute F03.91 Treatment Plan Patient admitted for inpatient psychiatric evaluation, medication adjustment and close monitoring The patient's behavior, mood, sleep and appetite will be closely monitored. Patient enrolled in individual and group therapeutic sessions and encouraged to attend. Patient provided with a safe and structured environment. Patient's physical health needs will be addressed by the Hospitalist. Hospitalist Consulted Labs including CBC, CMP, Lipid profile and Hemoglobin A1C levels ordered for baseline reference Social Assessment will be completed and the Addictions Counselor will work with patient and family to ensure a suitable and safe disposition Medication adjustment will be made as clinically indicated Clonazepam 0.25mg po BID x 3 days Usual Wellness Anabaptism/Preservation: - Start Trazodone 50 mg po QHS & 50 mg po QHS PRN between 10 PM & 2 AM for insomnia - Start Melatonin 5 mg po QHS to promote circadian rhythm - Start [place]-3 for brain health, reduce impulsivity, and as adjunctive treatment for mood disorder, continue upon discharge given overall benefits. - Start B1 prophylaxis with 200 mg po for 5 days The patient agreed on the treatment plan, understood the risk, benefit, alternative treatment, potential consequence of no treatment, and gave informed consent. Estimated days: 5 Post hospital care: primary care provider, psychiatric provider Medications and Allergies Allergies Allergy/AdvReac Type Severity Reaction Status Date / Time codeine Allergy Unknown Verified 11/23/20 20:12 Penicillins Allergy Unknown Verified 11/23/20 20:12 Home Medications Medication Instructions Recorded Confirmed Last Taken Type Benzonatate [Tessalon Perles] 100 mg PO Q8HR PRN 11/23/20 11/23/20 Unknown History Famotidine [Pepcid] 20 mg PO BID 11/23/20 11/23/20 Unknown History LORazepam [Lorazepam] 0.5 mg PO TID PRN 11/23/20 11/23/20 Unknown History dexAMETHasone [Dexamethasone] 6 mg PO Q24HR 11/23/20 11/23/20 Unknown History donepeziL [Aricept] 10 mg PO QDAY 11/23/20 11/23/20 Unknown History lisinopriL [Zestril TAB] 40 mg PO QDAY 11/23/20 11/23/20 Unknown History traZODone [Desyrel] 100 mg PO HS 11/23/20 11/23/20 Unknown History Active Meds: Active Medications Clonazepam (Clonazepam 0.5 Mg Tab) 0.25 mg PO BID [facility] Stop: 11/29/20 06:00 Last Admin: 11/26/20 21:36 Dose: 0.25 mg Documented by: Donepezil HCl (Donepezil 10 Mg Tab) 10 mg PO QHS [facility] Last Admin: 11/26/20 21:36 Dose: 10 mg Documented by: Famotidine (Famotidine 20 Mg Tab) 20 mg PO BID [facility] Last Admin: 11/26/20 21:36 Dose: 20 mg Documented by: Lisinopril (Lisinopril 40 Mg Tab) 40 mg PO QDAY [facility] Last Admin: 11/26/20 09:33 Dose: 40 mg Documented by: Melatonin (Melatonin 5 Mg Tab) 5 mg PO QHS PRN PRN Reason: Sleep Last Admin: 11/26/20 21:36 Dose: 5 mg Documented by: Risperidone (Risperidone 1 Mg Tab) 1 mg PO BID [facility] Last Admin: 11/26/20 21:36 Dose: 1 mg Documented by: Trazodone HCl (Trazodone 100 Mg Tab) 100 mg PO QHS [facility] Last Admin: 11/26/20 21:36 Dose: 100 mg Documented by: Results - Results Labs/Vitals: Laboratory Last Values WBC 6.5 K/mm3 (4.5-11.0) 11/24/20 06:20 RBC 3.79 M/mm3 (3.65-5.03) 11/24/20 06:20 Hgb 11.9 gm/dl (11.8-15.2) 11/24/20 06:20 Hct 36.1 % (35.5-45.6) 11/24/20 06:20 MCV 95 fl (84-94) H 11/24/20 06:20 MCH 31 pg (28-32) 11/24/20 06:20 MCHC 33 % (32-34) 11/24/20 06:20 RDW 15.0 % (13.2-15.2) 11/24/20 06:20 Plt Count 210 K/mm3 (140-440) 11/24/20 06:20 Lymph % (Auto) 26.7 % (13.4-35.0) 11/24/20 06:20 [place] % (Auto) 12.3 % (0.0-7.3) H 11/24/20 06:20 Eos % (Auto) 4.5 % (0.0-4.3) H 11/24/20 06:20 Baso % (Auto) 0.6 % (0.0-1.8) 11/24/20 06:20 Lymph # (Auto) 1.7 K/mm3 (1.2-5.4) 11/24/20 06:20 [place] # (Auto) 0.8 K/mm3 (0.0-0.8) 11/24/20 06:20 Eos # (Auto) 0.3 K/mm3 (0.0-0.4) 11/24/20 06:20 Baso # (Auto) 0.0 K/mm3 (0.0-0.1) 11/24/20 06:20 Seg Neutrophils % 55.9 % (40.0-70.0) 11/24/20 06:20 Seg Neutrophils # 3.6 K/mm3 (1.8-7.7) 11/24/20 06:20 Sodium 139 mmol/L (137-145) 11/24/20 06:20 Potassium 4.9 mmol/L (3.6-5.0) 11/24/20 06:20 Chloride 106.1 mmol/L (98-107) 11/24/20 06:20 Carbon Dioxide 27 mmol/L (22-30) 11/24/20 06:20 Anion Gap 11 mmol/L 11/24/20 06:20 BUN 22 mg/dL (9-20) H 11/24/20 06:20 Creatinine 1.4 mg/dL (0.8-1.3) H 11/24/20 06:20 Estimated GFR 50 ml/min 11/24/20 06:20 BUN/Creatinine Ratio 16 % 11/24/20 06:20 Glucose 84 mg/dL (75-100) 11/24/20 06:20 POC Glucose 78 mg/dL (70-105) 11/24/20 04:54 Hemoglobin A1c 6.1 % (4-6) H 11/24/20 06:20 Calcium 8.8 mg/dL (8.4-10.2) 11/24/20 06:20 Total Bilirubin 0.40 mg/dL (0.1-1.2) 11/24/20 06:20 AST 14 units/L (5-40) 11/24/20 06:20 ALT 9 units/L (7-56) 11/24/20 06:20 Alkaline Phosphatase 67 units/L (35-129) 11/24/20 06:20 Total Protein 6.1 g/dL (6.3-8.2) L 11/24/20 06:20 Albumin 3.5 g/dL (3.9-5) L 11/24/20 06:20 Albumin/Globulin Ratio 1.3 % 11/24/20 06:20 Triglycerides 87 mg/dL (2-149) 11/24/20 06:20 Cholesterol 139 mg/dL (50-199) 11/24/20 06:20 LDL Cholesterol Direct 89 mg/dL (50-130) 11/24/20 06:20 HDL Cholesterol 49 mg/dL (40-59) 11/24/20 06:20 Cholesterol/HDL Ratio 2.83 % 11/24/20 06:20 TSH 2.860 mlU/mL (0.270-4.200) 11/24/20 06:20 Last Vital Signs Temp 98.6 F 11/26/20 21:16 Pulse 78 01/29/21 21:16 Resp 20 11/26/20 21:16 BP 102/48 11/26/20 21:16 Pulse Ox 98 11/26/20 21:16
[2020-11-27] MEDS: risperiDONE 1 MG TAB PO SCH ×2 (12:42→21:51)
[2020-11-27] MEDS: FAMOTIDINE 20 MG TAB PO SCH ×2 (12:42→21:50)
[2020-11-27] MEDS: clonazePAM 0.5 MG TAB PO SCH ×2 (12:42→21:52)
[2020-11-27] MEDS: LISINOPRIL 40 MG TAB PO SCH (13:05)
[2020-11-27] MEDS: DONEPEZIL 10 MG TAB PO SCH (21:50)
[2020-11-27] MEDS: MELATONIN 5 MG TAB PO PRN (21:51)
[2020-11-27] MEDS: traZODone 100 MG TAB PO SCH (21:51)
--- NOTE | 2020-11-28 08:16 | Progress Note ---
Subjective Date of service: 11/28/20 Principal diagnosis: Dementia with behavioral disturbance Subjective Comment: The patient was walking around the unit. He smiled at me as I was walking up. He is confused and mostly stares. When asked how was he feeling, the patient replied "I don't know." He then smiles and walks off. Reason for continued inpatient treatment: The patient appears to be improving. Will continue to treat and monitor to ensue a safe discharge. REVIEW OF SYSTEMS ROS cannot be reliably obtained from the patient due to her confusion and somnolence. MENTAL STATUS EXAMINATION General Appearance and Behavior: Age appropriate, good hygiene, wearing appropriate clothes, calm Cooperation: Withdrawn Psychomotor Behavior: Psychomotor normal Mood: N/A Affect and affective range: Flat Thought Process: Tangential Thought Content:confused Speech: Normal volume, Regular rate and rhythm, Intellectual Functioning: Poor Suicidal Ideation: N/A Homicidal Ideation: N/A Impulse Control: Unimpaired Insight and Judgment: Impaired Memory: memory impaired Attention:Distractible, Orientation: Alert, but disoriented and confused Assessment and Plan (1) Dementia with behavioral disturbance Current Visit: Yes Status: Acute F03.91 Treatment Plan Patient admitted for inpatient psychiatric evaluation, medication adjustment and close monitoring The patient's behavior, mood, sleep and appetite will be closely monitored. Patient enrolled in individual and group therapeutic sessions and encouraged to attend. Patient provided with a safe and structured environment. Patient's physical health needs will be addressed by the Hospitalist. Hospitalist Consulted Labs including CBC, CMP, Lipid profile and Hemoglobin A1C levels ordered for baseline reference Social Assessment will be completed and the Personnel Recruiter will work with patient and family to ensure a suitable and safe disposition Medication adjustment will be made as clinically indicated No changes today Usual Wellness Zoroastrian/Preservation: - Start Trazodone 50 mg po QHS & 50 mg po QHS PRN between 10 PM & 2 AM for insomnia - Start Melatonin 5 mg po QHS to promote circadian rhythm - Start [place]-3 for brain health, reduce impulsivity, and as adjunctive treatment for mood disorder, continue upon discharge given overall benefits. - Start B1 prophylaxis with 200 mg po for 5 days The patient agreed on the treatment plan, understood the risk, benefit, alternative treatment, potential consequence of no treatment, and gave informed consent. Estimated days: 4 Post hospital care: primary care provider, psychiatric provider Medications and Allergies Allergies Allergy/AdvReac Type Severity Reaction Status Date / Time codeine Allergy Unknown Verified 11/23/20 20:12 Penicillins Allergy Unknown Verified 11/23/20 20:12 Home Medications Medication Instructions Recorded Confirmed Last Taken Type Benzonatate [Tessalon Perles] 100 mg PO Q8HR PRN 11/23/20 11/23/20 Unknown History Famotidine [Pepcid] 20 mg PO BID 11/23/20 11/23/20 Unknown History LORazepam [Lorazepam] 0.5 mg PO TID PRN 11/23/20 11/23/20 Unknown History dexAMETHasone [Dexamethasone] 6 mg PO Q24HR 11/23/20 11/23/20 Unknown History donepeziL [Aricept] 10 mg PO QDAY 11/23/20 11/23/20 Unknown History lisinopriL [Zestril TAB] 40 mg PO QDAY 11/23/20 11/23/20 Unknown History traZODone [Desyrel] 100 mg PO HS 11/23/20 11/23/20 Unknown History Active Meds: Active Medications Clonazepam (Clonazepam 0.5 Mg Tab) 0.25 mg PO BID [facility] Stop: 11/29/20 06:00 Last Admin: 11/27/20 21:52 Dose: 0.25 mg Documented by: Donepezil HCl (Donepezil 10 Mg Tab) 10 mg PO QHS [facility] Last Admin: 11/27/20 21:50 Dose: 10 mg Documented by: Famotidine (Famotidine 20 Mg Tab) 20 mg PO BID [facility] Last Admin: 11/27/20 21:50 Dose: 20 mg Documented by: Lisinopril (Lisinopril 40 Mg Tab) 40 mg PO QDAY [facility] Last Admin: 11/27/20 13:05 Dose: 40 mg Documented by: Melatonin (Melatonin 5 Mg Tab) 5 mg PO QHS PRN PRN Reason: Sleep Last Admin: 11/27/20 21:51 Dose: 5 mg Documented by: Risperidone (Risperidone 1 Mg Tab) 1 mg PO BID [facility] Last Admin: 11/27/20 21:51 Dose: 1 mg Documented by: Trazodone HCl (Trazodone 100 Mg Tab) 100 mg PO QHS [facility] Last Admin: 11/27/20 21:51 Dose: 100 mg Documented by: Results - Results Labs/Vitals: Laboratory Last Values WBC 6.5 K/mm3 (4.5-11.0) 11/24/20 06:20 RBC 3.79 M/mm3 (3.65-5.03) 11/24/20 06:20 Hgb 11.9 gm/dl (11.8-15.2) 11/24/20 06:20 Hct 36.1 % (35.5-45.6) 11/24/20 06:20 MCV 95 fl (84-94) H 11/24/20 06:20 MCH 31 pg (28-32) 11/24/20 06:20 MCHC 33 % (32-34) 11/24/20 06:20 RDW 15.0 % (13.2-15.2) 11/24/20 06:20 Plt Count 210 K/mm3 (140-440) 11/24/20 06:20 Lymph % (Auto) 26.7 % (13.4-35.0) 11/24/20 06:20 [place] % (Auto) 12.3 % (0.0-7.3) H 11/24/20 06:20 Eos % (Auto) 4.5 % (0.0-4.3) H 11/24/20 06:20 Baso % (Auto) 0.6 % (0.0-1.8) 11/24/20 06:20 Lymph # (Auto) 1.7 K/mm3 (1.2-5.4) 11/24/20 06:20 [place] # (Auto) 0.8 K/mm3 (0.0-0.8) 11/24/20 06:20 Eos # (Auto) 0.3 K/mm3 (0.0-0.4) 11/24/20 06:20 Baso # (Auto) 0.0 K/mm3 (0.0-0.1) 11/24/20 06:20 Seg Neutrophils % 55.9 % (40.0-70.0) 11/24/20 06:20 Seg Neutrophils # 3.6 K/mm3 (1.8-7.7) 11/24/20 06:20 Sodium 139 mmol/L (137-145) 11/24/20 06:20 Potassium 4.9 mmol/L (3.6-5.0) 11/24/20 06:20 Chloride 106.1 mmol/L (98-107) 11/24/20 06:20 Carbon Dioxide 27 mmol/L (22-30) 11/24/20 06:20 Anion Gap 11 mmol/L 11/24/20 06:20 BUN 22 mg/dL (9-20) H 11/24/20 06:20 Creatinine 1.4 mg/dL (0.8-1.3) H 11/24/20 06:20 Estimated GFR 50 ml/min 11/24/20 06:20 BUN/Creatinine Ratio 16 % 11/24/20 06:20 Glucose 84 mg/dL (75-100) 11/24/20 06:20 POC Glucose 78 mg/dL (70-105) 11/24/20 04:54 Hemoglobin A1c 6.1 % (4-6) H 11/24/20 06:20 Calcium 8.8 mg/dL (8.4-10.2) 11/24/20 06:20 Total Bilirubin 0.40 mg/dL (0.1-1.2) 11/24/20 06:20 AST 14 units/L (5-40) 11/24/20 06:20 ALT 9 units/L (7-56) 11/24/20 06:20 Alkaline Phosphatase 67 units/L (35-129) 11/24/20 06:20 Total Protein 6.1 g/dL (6.3-8.2) L 11/24/20 06:20 Albumin 3.5 g/dL (3.9-5) L 11/24/20 06:20 Albumin/Globulin Ratio 1.3 % 11/24/20 06:20 Triglycerides 87 mg/dL (2-149) 11/24/20 06:20 Cholesterol 139 mg/dL (50-199) 11/24/20 06:20 LDL Cholesterol Direct 89 mg/dL (50-130) 11/24/20 06:20 HDL Cholesterol 49 mg/dL (40-59) 11/24/20 06:20 Cholesterol/HDL Ratio 2.83 % 11/24/20 06:20 TSH 2.860 mlU/mL (0.270-4.200) 11/24/20 06:20 Last Vital Signs Temp 98.4 F 11/27/20 19:00 Pulse 95 H 11/27/20 19:00 Resp 16 11/27/20 19:00 BP 104/51 11/27/20 19:00 Pulse Ox 97 11/27/20 19:00
[2020-11-28] MEDS: clonazePAM 0.5 MG TAB PO SCH ×2 (10:12→21:36)
[2020-11-28] MEDS: risperiDONE 1 MG TAB PO SCH ×2 (10:13→21:36)
[2020-11-28] MEDS: FAMOTIDINE 20 MG TAB PO SCH ×2 (10:13→21:36)
[2020-11-28] MEDS: LISINOPRIL 40 MG TAB PO SCH (10:14)
[2020-11-28] MEDS: DOCUSATE SODIUM 100 MG CAP PO SCH ×2 (19:41→21:36)
[2020-11-28] MEDS: MELATONIN 5 MG TAB PO PRN (21:36)
[2020-11-28] MEDS: DONEPEZIL 10 MG TAB PO SCH (21:36)
[2020-11-28] MEDS: traZODone 100 MG TAB PO SCH (21:36)
--- NOTE | 2020-11-29 09:34 | Progress Note ---
Subjective Date of service: 11/29/20 Principal diagnosis: Dementia with behavioral disturbance Subjective Comment: The patient is in the dayroom. He is eating breakfast. He is confused. He smiles at me. He says he slept good when asked. The patient mostly just stares. He's unable to give any insight. Reason for continued inpatient treatment: The patient's behavior has improved significantly. Will continue to treat and monitor to ensue a safe discharge. REVIEW OF SYSTEMS ROS cannot be reliably obtained from the patient due to her confusion and somnolence. MENTAL STATUS EXAMINATION General Appearance and Behavior: Age appropriate, good hygiene, wearing appropriate clothes, calm Cooperation: Withdrawn Psychomotor Behavior: Psychomotor normal Mood: N/A Affect and affective range: Flat Thought Process: Tangential Thought Content:confused Speech: Normal volume, Regular rate and rhythm, Intellectual Functioning: Poor Suicidal Ideation: N/A Homicidal Ideation: N/A Impulse Control: Unimpaired Insight and Judgment: Impaired Memory: memory impaired Attention:Distractible, Orientation: Alert, but disoriented and confused Assessment and Plan (1) Dementia with behavioral disturbance Current Visit: Yes Status: Acute F03.91 Treatment Plan Patient admitted for inpatient psychiatric evaluation, medication adjustment and close monitoring The patient's behavior, mood, sleep and appetite will be closely monitored. Patient enrolled in individual and group therapeutic sessions and encouraged to attend. Patient provided with a safe and structured environment. Patient's physical health needs will be addressed by the Hospitalist. Hospitalist Consulted Labs including CBC, CMP, Lipid profile and Hemoglobin A1C levels ordered for baseline reference Social Assessment will be completed and the [facility] will work with patient and family to ensure a suitable and safe disposition Medication adjustment will be made as clinically indicated No changes today Usual Wellness Protestant/Preservation: - Start Trazodone 50 mg po QHS & 50 mg po QHS PRN between 10 PM & 2 AM for insomnia - Start Melatonin 5 mg po QHS to promote circadian rhythm - Start [place]-3 for brain health, reduce impulsivity, and as adjunctive treatment for mood disorder, continue upon discharge given overall benefits. - Start B1 prophylaxis with 200 mg po for 5 days The patient agreed on the treatment plan, understood the risk, benefit, alternative treatment, potential consequence of no treatment, and gave informed consent. Estimated days: 4 Post hospital care: primary care provider, psychiatric provider Medications and Allergies Allergies Allergy/AdvReac Type Severity Reaction Status Date / Time codeine Allergy Unknown Verified 11/23/20 20:12 Penicillins Allergy Unknown Verified 11/23/20 20:12 Home Medications Medication Instructions Recorded Confirmed Last Taken Type Benzonatate [Tessalon Perles] 100 mg PO Q8HR PRN 11/23/20 11/23/20 Unknown History Famotidine [Pepcid] 20 mg PO BID 11/23/20 11/23/20 Unknown History LORazepam [Lorazepam] 0.5 mg PO TID PRN 11/23/20 11/23/20 Unknown History dexAMETHasone [Dexamethasone] 6 mg PO Q24HR 11/23/20 11/23/20 Unknown History donepeziL [Aricept] 10 mg PO QDAY 11/23/20 11/23/20 Unknown History lisinopriL [Zestril TAB] 40 mg PO QDAY 11/23/20 11/23/20 Unknown History traZODone [Desyrel] 100 mg PO HS 11/23/20 11/23/20 Unknown History Active Meds: Active Medications Docusate Sodium (Docusate Sodium 100 Mg Cap) 100 mg PO BID [facility] Last Admin: 11/28/20 21:36 Dose: 100 mg Documented by: Donepezil HCl (Donepezil 10 Mg Tab) 10 mg PO QHS [facility] Last Admin: 11/28/20 21:36 Dose: 10 mg Documented by: Famotidine (Famotidine 20 Mg Tab) 20 mg PO BID [facility] Last Admin: 11/28/20 21:36 Dose: 20 mg Documented by: Lisinopril (Lisinopril 40 Mg Tab) 20 mg PO QDAY [facility] Melatonin (Melatonin 5 Mg Tab) 5 mg PO QHS PRN PRN Reason: Sleep Last Admin: 11/28/20 21:36 Dose: 5 mg Documented by: Risperidone (Risperidone 1 Mg Tab) 1 mg PO BID [facility] Last Admin: 11/28/20 21:36 Dose: 1 mg Documented by: Trazodone HCl (Trazodone 100 Mg Tab) 100 mg PO QHS [facility] Last Admin: 11/28/20 21:36 Dose: 100 mg Documented by: Results - Results Labs/Vitals: Laboratory Last Values WBC 6.5 K/mm3 (4.5-11.0) 11/24/20 06:20 RBC 3.79 M/mm3 (3.65-5.03) 11/24/20 06:20 Hgb 11.9 gm/dl (11.8-15.2) 11/24/20 06:20 Hct 36.1 % (35.5-45.6) 11/24/20 06:20 MCV 95 fl (84-94) H 11/24/20 06:20 MCH 31 pg (28-32) 11/24/20 06:20 MCHC 33 % (32-34) 11/24/20 06:20 RDW 15.0 % (13.2-15.2) 11/24/20 06:20 Plt Count 210 K/mm3 (140-440) 11/24/20 06:20 Lymph % (Auto) 26.7 % (13.4-35.0) 11/24/20 06:20 [place] % (Auto) 12.3 % (0.0-7.3) H 11/24/20 06:20 Eos % (Auto) 4.5 % (0.0-4.3) H 11/24/20 06:20 Baso % (Auto) 0.6 % (0.0-1.8) 11/24/20 06:20 Lymph # (Auto) 1.7 K/mm3 (1.2-5.4) 11/24/20 06:20 [place] # (Auto) 0.8 K/mm3 (0.0-0.8) 11/24/20 06:20 Eos # (Auto) 0.3 K/mm3 (0.0-0.4) 11/24/20 06:20 Baso # (Auto) 0.0 K/mm3 (0.0-0.1) 11/24/20 06:20 Seg Neutrophils % 55.9 % (40.0-70.0) 11/24/20 06:20 Seg Neutrophils # 3.6 K/mm3 (1.8-7.7) 11/24/20 06:20 Sodium 139 mmol/L (137-145) 11/24/20 06:20 Potassium 4.9 mmol/L (3.6-5.0) 11/24/20 06:20 Chloride 106.1 mmol/L (98-107) 11/24/20 06:20 Carbon Dioxide 27 mmol/L (22-30) 11/24/20 06:20 Anion Gap 11 mmol/L 11/24/20 06:20 BUN 22 mg/dL (9-20) H 11/24/20 06:20 Creatinine 1.4 mg/dL (0.8-1.3) H 11/24/20 06:20 Estimated GFR 50 ml/min 11/24/20 06:20 BUN/Creatinine Ratio 16 % 11/24/20 06:20 Glucose 84 mg/dL (75-100) 11/24/20 06:20 POC Glucose 78 mg/dL (70-105) 11/24/20 04:54 Hemoglobin A1c 6.1 % (4-6) H 11/24/20 06:20 Calcium 8.8 mg/dL (8.4-10.2) 11/24/20 06:20 Total Bilirubin 0.40 mg/dL (0.1-1.2) 11/24/20 06:20 AST 14 units/L (5-40) 11/24/20 06:20 ALT 9 units/L (7-56) 11/24/20 06:20 Alkaline Phosphatase 67 units/L (35-129) 11/24/20 06:20 Total Protein 6.1 g/dL (6.3-8.2) L 11/24/20 06:20 Albumin 3.5 g/dL (3.9-5) L 11/24/20 06:20 Albumin/Globulin Ratio 1.3 % 11/24/20 06:20 Triglycerides 87 mg/dL (2-149) 11/24/20 06:20 Cholesterol 139 mg/dL (50-199) 11/24/20 06:20 LDL Cholesterol Direct 89 mg/dL (50-130) 11/24/20 06:20 HDL Cholesterol 49 mg/dL (40-59) 11/24/20 06:20 Cholesterol/HDL Ratio 2.83 % 11/24/20 06:20 TSH 2.860 mlU/mL (0.270-4.200) 11/24/20 06:20 Last Vital Signs Temp 97.6 F 11/28/20 19:00 Pulse 77 11/28/20 19:00 Resp 16 11/28/20 19:00 BP 124/65 11/28/20 19:00 Pulse Ox 96 11/28/20 19:00
[2020-11-29] MEDS: DOCUSATE SODIUM 100 MG CAP PO SCH ×2 (09:48→21:21)
[2020-11-29] MEDS: FAMOTIDINE 20 MG TAB PO SCH ×2 (09:48→21:21)
[2020-11-29] MEDS: LISINOPRIL 40 MG TAB PO SCH ×2 (09:48→11:06)
[2020-11-29] MEDS: risperiDONE 1 MG TAB PO SCH ×2 (09:48→21:22)
[2020-11-29] MEDS: DONEPEZIL 10 MG TAB PO SCH (21:21)
[2020-11-29] MEDS: traZODone 100 MG TAB PO SCH (21:21)
[2020-11-29] MEDS: MELATONIN 5 MG TAB PO PRN (23:47)
--- NOTE | 2020-11-30 08:53 | Discharge Summary ---
Providers - Providers Date of Admission: 11/24/20 01:29 Date of discharge: 11/30/20 Attending physician: ADELITA OBREGON MD 11/24/20 08:00 Consult to Physician [CONS] Routine Comment: Consulting Provider: ABBIE JUSTIN Physician Instructions: Reason For Exam: New admiision H&P Primary care physician: [facility] Hospitalization Reason for admission: hallucinations Admitting Diagnosis: F02.81 - DEMENTIA IN OTH DISEASES CLASSD ELSWHR W BEHAVIORAL DISTURB Hospital course: The patient was provided inpatient psychiatric treatment with safe and supportive care, medication adjustment, adverse effect monitoring, medical evaluations, medical treatments, assessment and psycho-education. The patient's mood, cognition, behavior, moral support are improved and stabilized. St the time of discharge, the patient had no endangering behavior and no debilitating adverse effects. The patient agreed on potential consequences of no treatment and gave informed consent. Disposition: [place]-03 [facility] Time spent for discharge: 38 Allergies/Adverse Reactions: Allergies codeine Allergy (Verified 11/23/20 20:12) Unknown Penicillins Allergy (Verified 11/23/20 20:12) Unknown Vital Signs: Last Vital Signs Temp 98.9 F 11/29/20 20:54 Pulse 76 11/29/20 20:54 Resp 20 11/29/20 20:54 BP 118/58 11/29/20 20:54 Pulse Ox 96 11/29/20 20:54 Last Lab: Laboratory Last Values WBC 6.5 K/mm3 (4.5-11.0) 11/24/20 06:20 RBC 3.79 M/mm3 (3.65-5.03) 11/24/20 06:20 Hgb 11.9 gm/dl (11.8-15.2) 11/24/20 06:20 Hct 36.1 % (35.5-45.6) 11/24/20 06:20 MCV 95 fl (84-94) H 11/24/20 06:20 MCH 31 pg (28-32) 11/24/20 06:20 MCHC 33 % (32-34) 11/24/20 06:20 RDW 15.0 % (13.2-15.2) 11/24/20 06:20 Plt Count 210 K/mm3 (140-440) 11/24/20 06:20 Lymph % (Auto) 26.7 % (13.4-35.0) 11/24/20 06:20 [place] % (Auto) 12.3 % (0.0-7.3) H 11/24/20 06:20 Eos % (Auto) 4.5 % (0.0-4.3) H 11/24/20 06:20 Baso % (Auto) 0.6 % (0.0-1.8) 11/24/20 06:20 Lymph # (Auto) 1.7 K/mm3 (1.2-5.4) 11/24/20 06:20 [place] # (Auto) 0.8 K/mm3 (0.0-0.8) 11/24/20 06:20 Eos # (Auto) 0.3 K/mm3 (0.0-0.4) 11/24/20 06:20 Baso # (Auto) 0.0 K/mm3 (0.0-0.1) 11/24/20 06:20 Seg Neutrophils % 55.9 % (40.0-70.0) 11/24/20 06:20 Seg Neutrophils # 3.6 K/mm3 (1.8-7.7) 11/24/20 06:20 Sodium 139 mmol/L (137-145) 11/24/20 06:20 Potassium 4.9 mmol/L (3.6-5.0) 11/24/20 06:20 Chloride 106.1 mmol/L (98-107) 11/24/20 06:20 Carbon Dioxide 27 mmol/L (22-30) 11/24/20 06:20 Anion Gap 11 mmol/L 11/24/20 06:20 BUN 22 mg/dL (9-20) H 11/24/20 06:20 Creatinine 1.4 mg/dL (0.8-1.3) H 11/24/20 06:20 Estimated GFR 50 ml/min 11/24/20 06:20 BUN/Creatinine Ratio 16 % 11/24/20 06:20 Glucose 84 mg/dL (75-100) 11/24/20 06:20 POC Glucose 78 mg/dL (70-105) 11/24/20 04:54 Hemoglobin A1c 6.1 % (4-6) H 11/24/20 06:20 Calcium 8.8 mg/dL (8.4-10.2) 11/24/20 06:20 Total Bilirubin 0.40 mg/dL (0.1-1.2) 11/24/20 06:20 AST 14 units/L (5-40) 11/24/20 06:20 ALT 9 units/L (7-56) 11/24/20 06:20 Alkaline Phosphatase 67 units/L (35-129) 11/24/20 06:20 Total Protein 6.1 g/dL (6.3-8.2) L 11/24/20 06:20 Albumin 3.5 g/dL (3.9-5) L 11/24/20 06:20 Albumin/Globulin Ratio 1.3 % 11/24/20 06:20 Triglycerides 87 mg/dL (2-149) 11/24/20 06:20 Cholesterol 139 mg/dL (50-199) 11/24/20 06:20 LDL Cholesterol Direct 89 mg/dL (50-130) 11/24/20 06:20 HDL Cholesterol 49 mg/dL (40-59) 11/24/20 06:20 Cholesterol/HDL Ratio 2.83 % 11/24/20 06:20 TSH 2.860 mlU/mL (0.270-4.200) 11/24/20 06:20 Core Measure Documentation - Palliative Care Palliative Care/ Comfort Measures: Not Applicable - Core Measures Any of the following diagnoses?: none Exam - Constitutional Vitals: Temp Pulse Resp BP Pulse Ox 98.9 F 76 20 118/58 96 11/29/20 20:54 11/29/20 20:54 11/29/20 20:54 11/29/20 20:54 11/29/20 20:54 General appearance: Present: no acute distress - EENT Eyes: Present: PERRL, EOM intact ENT: hearing intact, clear oral mucosa - Neck Neck: Present: supple, normal ROM - Respiratory Respiratory effort: normal Plan Activity: advance as tolerated Weight Bearing Status: Weight Bear as Tolerated Care Plan Goals: Maintain good and stable mental health Plan of Treatment: The patient should be compliant with medications, not to use drugs, and not to drink alcohol. The patient understands that if suicidal ideas, homicidal ideas or any endangering feeling arise, the patient should seek assistance including, but not limited to crisis hotline, and emergency room. Health Concerns: HTN Assessment: Dementia w/Behavioral Disturbances Follow up with: PRIMARY CARE, [Primary Care Provider] - 7 Days Prescriptions: Melatonin [Melatonin 5MG TAB] 5 mg PO QHS PRN #30 tablet PRN Reason: Sleep risperiDONE [RisperDAL] 1 mg PO BID #60 tablet
[2020-11-30 08:55] VITALS: BP 139/62
[2020-11-30] MEDS: DOCUSATE SODIUM 100 MG CAP PO SCH (10:14)
[2020-11-30] MEDS: FAMOTIDINE 20 MG TAB PO SCH (10:15)
[2020-11-30] MEDS: LISINOPRIL 40 MG TAB PO SCH (10:15)
[2020-11-30] MEDS: risperiDONE 1 MG TAB PO SCH (10:15)
--- NOTE | 2020-11-30 20:06 | Progress Note ---
Assessment and Plan - Patient Problems (1) Dementia with behavioral disturbance Status: Acute Qualifiers: Dementia type: vascular dementia Qualified Code(s): F01.51 - Vascular dementia with behavioral disturbance Plan to address problem: Verbal prompting, verbal redirection, benzodiazepine therapy as clinically indicated. (2) Hypertension Status: Chronic Qualifiers: Hypertension type: essential hypertension Qualified Code(s): I10 - Essential (primary) hypertension Plan to address problem: Continue medical management. Monitor blood pressure every shift. History Interval history: 74 YO Male with Dementia with Behavioral Disturbance, HTN admitted to [facility] for psychiatric stabilization. No reported nursing events. Pt denies pain. Hospitalist Physical - Constitutional Vitals: Temp Pulse Resp BP Pulse Ox 98.0 F 90 18 139/62 96 11/30/20 08:40 11/30/20 08:40 11/30/20 08:40 11/30/20 08:40 11/30/20 08:40 General appearance: Present: no acute distress - EENT Eyes: Present: PERRL, EOM intact - Neck Neck: Present: supple - Respiratory Respiratory: bilateral: CTA - Cardiovascular Rhythm: regular Heart Sounds: Present: S1 & S2 - Extremities Extremities: no ischemia Peripheral Pulses: within normal limits - Abdominal General gastrointestinal: soft, non-distended - Integumentary Integumentary: Present: clear, dry - Psychiatric Psychiatric: cooperative - Neurologic Neurologic: CNII-XII intact Results - Labs CBC & Chem 7: 11/24/20 06:20 11/24/20 06:20 Labs: Laboratory Last Values WBC 6.5 K/mm3 (4.5-11.0) 11/24/20 06:20 RBC 3.79 M/mm3 (3.65-5.03) 11/24/20 06:20 Hgb 11.9 gm/dl (11.8-15.2) 11/24/20 06:20 Hct 36.1 % (35.5-45.6) 11/24/20 06:20 MCV 95 fl (84-94) H 11/24/20 06:20 MCH 31 pg (28-32) 11/24/20 06:20 MCHC 33 % (32-34) 11/24/20 06:20 RDW 15.0 % (13.2-15.2) 11/24/20 06:20 Plt Count 210 K/mm3 (140-440) 11/24/20 06:20 Lymph % (Auto) 26.7 % (13.4-35.0) 11/24/20 06:20 [place] % (Auto) 12.3 % (0.0-7.3) H 11/24/20 06:20 Eos % (Auto) 4.5 % (0.0-4.3) H 11/24/20 06:20 Baso % (Auto) 0.6 % (0.0-1.8) 11/24/20 06:20 Lymph # (Auto) 1.7 K/mm3 (1.2-5.4) 11/24/20 06:20 [place] # (Auto) 0.8 K/mm3 (0.0-0.8) 11/24/20 06:20 Eos # (Auto) 0.3 K/mm3 (0.0-0.4) 11/24/20 06:20 Baso # (Auto) 0.0 K/mm3 (0.0-0.1) 11/24/20 06:20 Seg Neutrophils % 55.9 % (40.0-70.0) 11/24/20 06:20 Seg Neutrophils # 3.6 K/mm3 (1.8-7.7) 11/24/20 06:20 Sodium 139 mmol/L (137-145) 11/24/20 06:20 Potassium 4.9 mmol/L (3.6-5.0) 11/24/20 06:20 Chloride 106.1 mmol/L (98-107) 11/24/20 06:20 Carbon Dioxide 27 mmol/L (22-30) 11/24/20 06:20 Anion Gap 11 mmol/L 11/24/20 06:20 BUN 22 mg/dL (9-20) H 11/24/20 06:20 Creatinine 1.4 mg/dL (0.8-1.3) H 11/24/20 06:20 Estimated GFR 50 ml/min 11/24/20 06:20 BUN/Creatinine Ratio 16 % 11/24/20 06:20 Glucose 84 mg/dL (75-100) 11/24/20 06:20 POC Glucose 78 mg/dL (70-105) 11/24/20 04:54 Hemoglobin A1c 6.1 % (4-6) H 11/24/20 06:20 Calcium 8.8 mg/dL (8.4-10.2) 11/24/20 06:20 Total Bilirubin 0.40 mg/dL (0.1-1.2) 11/24/20 06:20 AST 14 units/L (5-40) 11/24/20 06:20 ALT 9 units/L (7-56) 11/24/20 06:20 Alkaline Phosphatase 67 units/L (35-129) 11/24/20 06:20 Total Protein 6.1 g/dL (6.3-8.2) L 11/24/20 06:20 Albumin 3.5 g/dL (3.9-5) L 11/24/20 06:20 Albumin/Globulin Ratio 1.3 % 11/24/20 06:20 Triglycerides 87 mg/dL (2-149) 11/24/20 06:20 Cholesterol 139 mg/dL (50-199) 11/24/20 06:20 LDL Cholesterol Direct 89 mg/dL (50-130) 11/24/20 06:20 HDL Cholesterol 49 mg/dL (40-59) 11/24/20 06:20 Cholesterol/HDL Ratio 2.83 % 11/24/20 06:20 TSH 2.860 mlU/mL (0.270-4.200) 11/24/20 06:20 Sanchez/IV: Voiding Method Incontinent
== END 2020-11-30 10:11 | DRG 884 ==
LOC: 3A 20:00 → UNDOADMIN 20:00 → 5A 11-24 01:29
PROVIDERS: ADMIT Psychiatry & Neurology Psychiatry; ATTEND Psychiatry & Neurology Psychiatry
DX: F03.91 Unspecified dementia, unspecified severity, with behavioral disturbance (principal); I12.9 Hypertensive chronic kidney disease with stage 1 through stage 4 chronic kidney disease, or unspecified chronic kidney disease; N18.31 Chronic kidney disease, stage 3a; Z79.899 Other long term (current) drug therapy; Z88.2 Allergy status to sulfonamides; Z88.5 Allergy status to narcotic agent
CPT/HCPCS: 36415; 80053; 80061; 82962; 83036; 84443; 85025; G0378